=== PATIENT | female | born 1975 ===

== ENCOUNTER → 2020-09-12 13:32 | Outpatient (CLI) | payer OTHER, SELFPAY ==
--- NOTE | 2020-09-12 13:37 | DI.RAD.S_ITS ---
PROCEDURE: XR LUMBAR SPINE MIN 4V INDICATIONS: BACK PAIN TECHNIQUE: 5 views of the lumbar spine were acquired, including bilateral oblique views. COMPARISON: None. FINDINGS: Bones: 5 nonrib-bearing vertebrae are present. There is loss of normal lumbar lordosis. Mild grade 1 retrolisthesis of L3 on L4. No vertebral body compression fractures. No suspicious bony lesions. Mild multilevel endplate osteophyte formation. Facet hypertrophy throughout the mid and lower lumbar spine. Soft tissues: Overlying bowel gas pattern is normal. No suspicious soft tissue calcifications. Oblique images: No pars defects. IMPRESSION: 1. Multilevel degenerative disc and facet disease. 2. No acute fracture. No osseous lesion. If symptoms and/or clinical suspicion for pathology persist, further assessment with repeat, or advanced imaging (e.g., CT, MRI, or bone scan) may be helpful for further assessment. Dictated by: Aarti George M.D. on 09/12/2020 at 16:47 Approved by: Aarti George M.D. on 09/12/2020 at 16:48
== END ==
PROVIDERS: Referring Provider Physical Medicine & Rehabilitation; Visit Provider Physical Medicine & Rehabilitation
DX: M54.9 Dorsalgia, unspecified (principal); M51.36 Other intervertebral disc degeneration, lumbar region; M47.816 Spondylosis without myelopathy or radiculopathy, lumbar region
CPT/HCPCS: 72110

== ENCOUNTER → 2020-09-22 18:07 | Outpatient (CLI) | payer OTHER, SELFPAY ==
--- NOTE | 2020-09-22 18:09 | DI.MRI.S_ITS ---
PROCEDURE: MR LUMBAR SPINE WO CON INDICATIONS: Chronic progressive low back pain TECHNIQUE: Noncontrast sagittal T1 spin echo and T2 fast echo, sagittal STIR, axial T1 and T2 fast spin echo through the lumbar spine. In cases with scoliosis, additional coronal T2 fast spin echo may be performed. COMPARISON: None. FINDINGS: Image quality: Excellent. Alignment and Curvature: There is normal bony alignment. Bone Marrow: Marrow is of normal overall signal. No acute vertebral body compression fractures. Spinal Cord: Conus medullaris terminates at the L1 level. Visualized cord demonstrates normal signal and size. Paraspinous Soft Tissues: No paravertebral masses. T12-L1: Normal disc height. No foraminal or central canal stenosis. L1-L2: Disc desiccation and mild disc height loss. No foraminal or central canal stenosis. L2-L3: Disc desiccation and mild to moderate disc height loss. There is a small right posterolateral annular tear and minimal disc herniation without foraminal stenosis. L3-L4: Disc desiccation and mild disc height loss. Small bilateral foraminal disc herniation without significant foraminal narrowing. L4-L5: Disc desiccation and mild disc height loss. Small right posterolateral/foraminal annular tear with minimal disc bulge. No foraminal or central canal stenosis. L5-S1: Disc desiccation with mild disc height loss. Diffuse broad-based right posterolateral disc bulge superimposed on minor circumferential disc bulge. Mild left neural foraminal narrowing. No central canal narrowing. IMPRESSION: 1. Mild multilevel disc degeneration as described. 2. No significant central canal or foraminal stenosis. Dictated by: Elizabeth Dubois M.D. on 09/23/2020 at 8:28 Approved by: Elizabeth Dubois M.D. on 09/23/2020 at 8:38
== END ==
PROVIDERS: Referring Provider Physical Medicine & Rehabilitation; Visit Provider Physical Medicine & Rehabilitation
DX: M47.816 Spondylosis without myelopathy or radiculopathy, lumbar region (principal); M51.36 Other intervertebral disc degeneration, lumbar region; M51.27 Other intervertebral disc displacement, lumbosacral region; G89.29 Other chronic pain
CPT/HCPCS: 72148

== ENCOUNTER → 2020-12-06 07:29 | Outpatient (CLI) | payer OTHER, SELFPAY ==
[2020-12-06 13:22] LABS: COVID19 -Nasal RAPID Negative (Negative)
== END ==
PROVIDERS: Visit Provider Physical Medicine & Rehabilitation
DX: Z20.822 Contact with and (suspected) exposure to COVID-19 (principal)
CPT/HCPCS: 87635; C9803

== ENCOUNTER 2020-12-08 12:28 | Outpatient (CLI) | payer OTHER, SELFPAY ==
[2020-12-08] VITALS (8 sets, daily range): BP systolic 108–148; BP diastolic 59–84; PULSE 32–52; RESP 10–20; TEMP 37.1; O2SAT 96–100
--- NOTE | 2020-12-08 12:29 | DI.RAD.S_ITS ---
PROCEDURE: PAIN L/S FACET INJ/BLK 1ST ELI COMPARISON: None. INDICATIONS: SPONDYLOSIS FINDINGS: Fluoroscopic spot filming was performed to verify placement of spinal needles at the L4-L5, L5-S1 level(s), as labeled on the films. Appropriate location(s) of the needle tip(s) was confirmed by injection of iodinated contrast. Dictated by: Jason Ladd M.D. on 12/08/2020 at 14:06 Approved by: Jason Ladd M.D. on 12/08/2020 at 14:07
[2020-12-08] MEDS: fentaNYL 100 MCG/2 ML INJ 50 MCG IV (13:15)
[2020-12-08] MEDS: MIDAZOLAM 5 MG/5 ML VIAL IV (13:15)
[2020-12-08] MEDS: IOPAMIDOL 15 ML VIAL 3 ML INJ (13:24)
[2020-12-08] MEDS: BUPIVACAINE 0.5% (PF) VIAL 2 ML INJ (13:24)
[2020-12-08] MEDS: BETAMETHASONE 30 MG/5 ML MDV 12 MG INJ (13:24)
[2020-12-08] MEDS: LIDOCAINE 1% 20 ML 10 ML INJ (13:25)
--- NOTE | 2020-12-08 13:29 | P.PCN_ITS ---
Date/Time/Diagnoses Date of procedure: 12/08/20 Time of procedure: 13:29 Pre-procedure diagnosis: 1. FACET ARTHROPATHY 2. AXIAL LBP 3. MULTILEVEL DDD Post-procedure diagnosis: same Procedure Notes Procedure: 1. FLUOROSCOPICALLY GUIDED CONTRAST CONTROLLED FACET JOINT INJECTIONS BILATERAL L4/5, L5/S1 Indications: Brandee is referred for treatment of Axial LBP Physician: Milton Carvajal Total Fluoroscopy time (seconds): 11 Total sedation minutes: 11 Complications: none Procedure in detail & Post-procedure care: FINDINGS Multilevel Facet Arthropathy with Clinically significant axial LBP DESCRIPTION OF PROCEDURE Fluoroscopically guided, contrast-controlled bilateral L4/5, L5/S1 facet joint injections. Following review of allergy and review of potential side effects and compl ications, including, but not necessarily limited to, infection, allergic reaction, local tissue breakdown, stroke, temporary or permanent nerve injury, paralysis, and possible , the patient indicated that the patient understood and agreed to proceed. An informed consent document was signed by the patient, witnessed by a nurse, and placed in the patient's chart. Additionally, other treatment options including medications, modalities, and physical therapy were reviewed with the patient. After review of previous anaesthesic history and IV conscious sedation the patient was deemed safe to proceed with today?s procedure with IV conscious sedation as ASA class II designation. Safety time-out was performed to confirm patient ID, procedure to be performed and site of procedure. IV sedation was accomplished with a combination of 2mg of Versed and 50mcg of Fentanyl was administered by the RN after DO order, titrated to patient comfort during the course of the procedure while the patient remained responsive to all verbal commands In the prone position, following sterile prep and drape of the lumbar region, the posterior aspect of the L4/5, L5/S1 facet joints were identified fluorosco pically. The skin was anesthetized via a 25-gauge 1.5inch needle with 1% lidocaine solution into the corresponding facet joints. At this point, a 22- gauge 3.5-inch spinal needle was atraumatically introduced and advanced under fluoroscopic guidance into the corresponding facet joints. Following negative aspiration, injections of approximately 0.2cc of Isovue 200 confirmed interarticular placement without vascular uptake. The identical procedure was then performed at the L4/5, L5/S1 facet joints on the left. Radiological data, including multiple fluoroscopic views of the lumbosacral spin e, reveal a spinal needle at the L4/5, L5/S1 facet joints bilaterally. Subsequent views show flow of contrast material both superiorly and inferiorly within the joint space without vascular or intrathecal uptake. At this point, a total of 0.5cc including a mixture of 0.25cc Marcaine and 0.25cc betamethasone was injected without complication into each of the corresponding facet joints. The patient tolerated the procedure well without signs or symptoms of complications prior to transfer to the recovery area continued monitoring without incident. The patient was then transferred to the recovery area where they were observed for an appropriate period of time after the injection. The patient reported a VAS score of 7 prior to the procedure and a post- procedure VAS of 0. POST OP INSTRUCTIONS The patient was provided a Pain Log to continue to record their response to the target-specific procedure prior to follow-up visit with their referring physician. Additionally, specific post-injection care instructions and a contact number to our office were provided if concerns arise regarding possible complications associated with the procedure are suspected.
[2020-12-08] MEDS: ONDANSETRON 4 MG ODT SL (14:10)
--- NOTE | 2020-12-08 14:31 | PC.NURSE ---
Patient at baseline vitals, mobility and pre-procedure status. Discharged per protocol but during transport via by Justen SAMUELS the patient became very nauseated. She was brought back to the room where she continued to vomit approximately 50mL emesis, clear liquid. Zofran ODT given per verbal orders from Dr. Carvajal. Evaluated by Dr. Carvajal and after further monitoring was clear and comfortable to DC.
== END 2020-12-08 14:31 | disposition home or self-care (01) ==
PROVIDERS: Referring Provider Physical Medicine & Rehabilitation; Visit Provider Physical Medicine & Rehabilitation
DX: M47.816 Spondylosis without myelopathy or radiculopathy, lumbar region (principal); M47.817 Spondylosis without myelopathy or radiculopathy, lumbosacral region; M54.5 Low back pain; M51.36 Other intervertebral disc degeneration, lumbar region; M51.37 Other intervertebral disc degeneration, lumbosacral region
CPT/HCPCS: 64493; 64494; 99152; J0702; J2250; J3010

== ENCOUNTER → 2021-03-14 13:37 | Outpatient (CLI) | payer OTHER, SELFPAY ==
[2021-03-14 14:52] LABS: COVID19 -Nasal RAPID Negative (Negative)
== END ==
PROVIDERS: Referring Provider Physical Medicine & Rehabilitation; Visit Provider Physical Medicine & Rehabilitation
DX: Z20.822 Contact with and (suspected) exposure to COVID-19 (principal)
CPT/HCPCS: 87635; C9803

== ENCOUNTER 2021-03-16 15:31 | Outpatient (CLI) | payer OTHER, SELFPAY ==
[2021-03-16] VITALS (8 sets, daily range): BP systolic 110–125; BP diastolic 57–84; PULSE 48–70; RESP 14–20; TEMP 36.6; O2SAT 96–100
--- NOTE | 2021-03-16 15:34 | DI.RAD.S_ITS ---
PROCEDURE: PAIN L INTERLAMINAR/CAUDAL INJ INDICATIONS: SPONDYLOSIS COMPARISON: None. FINDINGS: Fluoroscopic spot filming was performed to verify placement of spinal needles at the left L5-S1 interlaminar space with tip at the level of the posterior L5-S1 epidural space. level(s), as labeled on the films. Appropriate location(s) of the needle tip(s) was confirmed by injection of iodinated contrast. IMPRESSION: Access needle placed for L5-S1 epidural steroid injection via left interlaminar approach. Dictated by: Earnestine Castañeda MD, PhD on 03/17/2021 at 12:31 Approved by: Earnestine Castañeda MD, PhD on 03/17/2021 at 12:32
[2021-03-16] MEDS: MIDAZOLAM 5 MG/5 ML VIAL IV (16:08)
[2021-03-16] MEDS: IOPAMIDOL 15 ML VIAL 3 ML INJ (16:15)
[2021-03-16] MEDS: BUPIVACAINE 0.25% (PF) VIAL 2 ML INJ (16:15)
[2021-03-16] MEDS: BETAMETHASONE 30 MG/5 ML MDV 12 MG INJ (16:16)
[2021-03-16] MEDS: DEXAMETHASONE 10 MG/ML VIAL 20 MG INJ (16:16)
--- NOTE | 2021-03-16 16:20 | PM.PROC.IR.1 ---
Date/Time/Diagnoses Date of procedure: 03/16/21 Time of procedure: 16:20 Pre-procedure diagnosis: 1. HNP WITH RADICULAR FEATURES, 2. MULTILEVEL CENTRAL STENOSIS, Post-procedure diagnosis: same Procedure Notes Procedure: 1. FLUOROSCOPICALLY GUIDED CONTRAST CONTROLLED INTERLAMINAR EPIDURAL STEROID INJECTION - L5/S1 Indications: Brandee is referred for treatment of Bilateral Foraminal Stenosis L>R LE symptoms. Physician: Milton Carvajal Total Fluoroscopy time (seconds): 4 Total sedation minutes: 8 Complications: none Procedure in detail & Post-procedure care: FINDINGS Multilevel Central Spinal Stenosis with Nerve Root Compression DESCRIPTION OF PROCEDURE Fluoroscopically guided, contrast-controlled L5/S1 translaminar epidural steroid injection. Following review of allergy and review of potential side effects and complications, including, but not necessarily limited to, infection, allergic reaction, local tissue breakdown, temporary as well as permanent nerve injury, paralysis, stroke and possible , the patient indicated that the patient understood and agreed to proceed. An informed consent document was signed by the patient, witnessed by a nurse, and placed in the patient's chart. Additionally, other treatment options including modalities, medications, and physical therapy were reviewed with the patient. After review of previous anaesthesic history and IV conscious sedation the patient was deemed safe to proceed with today?s procedure with IV conscious sedation as ASA class II designation. Safety time-out was performed to confirm patient ID, procedure to be performed and site of procedure. IV sedation was accomplished with a combination of 2mg of Versed administered by the RN after DO order, titrated to patient comfort during the course of the procedure while the patient remained responsive to all verbal commands. In the prone position, following sterile prep and drape of the lumbar region, the L5/S1 translaminar space was identified fluoroscopically. The skin was anesthetized via a 25-gauge, 1.5-inch needle with 1% lidocaine solution. At this point, a 22-gauge short bevel spinal needle was atraumatically introduced and advanced under fluoroscopic guidance into the region of the L5/S1 translaminar space. Depth was confirmed on lateral view. Radiological data, including multiple fluoroscopic views of the lumbar spine, reveal a spinal needle at the L5/S1 translaminar space. Lateral views then show placement of the needle in the epidural space. Subsequent views show contrast material flowing superiorly and inferiorly in the epidural space. No vascular or intrathecal uptake is observed. At this point, using loss of resistance technique with saline and air, the epidural space was entered. This was confirmed following negative aspiration with injection of approximately 1.5cc of Isovue 200, showing excellent epidural flow without vascular or intrathecal uptake. At this point, 1 cc of 1% lidocaine solution combined with 4cc or 20mg of dexamethasone and 12mg of betamethasone was injected without incident. The patent tolerated the procedure without signs of symptoms of complications prior to transfer to the recovery area for further monitoring. The patient was then transferred to the recovery area where they were observed for an appropriate period of time after the injection. The patient reported a VAS score of 6 prior to the procedure and a post-procedure VAS of 0. POST OP INSTRUCTIONS The patient was provided a Pain Log to continue to record their response to the target-specific procedure prior to follow-up visit with their referring physician. Additionally, specific post-injection care instructions and a contact number to our office were provided if concerns arise regarding possible complications associated with the procedure are suspected.
== END 2021-03-16 16:39 | disposition home or self-care (01) ==
LOC: RAD 15:32
PROVIDERS: Referring Provider Physical Medicine & Rehabilitation; Visit Provider Physical Medicine & Rehabilitation
DX: M51.17 Intervertebral disc disorders with radiculopathy, lumbosacral region (principal); M48.07 Spinal stenosis, lumbosacral region
CPT/HCPCS: 62323; J0702; J1100; J2250; J3010

== ENCOUNTER → 2021-09-26 15:59 | Outpatient (CLI) | payer OTHER, SELFPAY | PROVIDERS: Referring Provider Ophthalmology; Visit Provider Ophthalmology | DX: H16.042 Marginal corneal ulcer, left eye (principal) | CPT/HCPCS: 87070; 87075; 87205 ==

== ENCOUNTER → 2021-12-19 13:39 | Outpatient (CLI) | payer OTHER, SELFPAY ==
[2021-12-19 15:17] LABS: Add Manual Diff / Slide Review NO; Basophils Absolute Auto 100 /uL (0-100); Eosinophils Absolute Auto 100 /uL (0-450); Eosinophils Percent Auto 2.2 % (2-4); Hematocrit 38.3 % (36-46); Hemoglobin 13.1 g/dL (12.0-16.0); Lymphocytes Absolute Auto 1900 /uL (1100-4500); Mean Corpuscular HGB Conc 34.1 % (30-36); Mean Corpuscular Hemoglobin 30.6 PG (26-34); Mean Corpuscular Volume 89.7 fL (80-100); Monocytes Absolute Auto 300 /uL (0-900); Monocytes Percent Auto 5.1 % (3-14); Neutrophils Absolute Auto 3900 /uL (1500-7000); Neutrophils Percent Auto 61.7 % (50-75); Platelet Count 261 X10^3/uL (150-400); Red Blood Cell Count 4.27 X10^6/uL (4.0-5.2); Red Cell Distribution Width 12.5 % (11.6-14.8); White Blood Cell Count 6.3 X10^3/uL (4.5-11.0)
[2021-12-19 15:39] LABS: Alanine Aminotransferase 13 IU/L (<35); Albumin 4.3 g/dL (3.5-5.0); Albumin Globulin Ratio 1.6 (1.0-2.8); Alkaline Phosphatase 45 U/L (38-126); Aspartate Aminotransferase 23 IU/L (14-36); BUN Creatinine Ratio 22.1 (6-22); Bilirubin Total 0.6 mg/dL (0.2-1.3); Blood Urea Nitrogen 15 mg/dL (7-17); Calcium 9.2 mg/dL (8.4-10.2); Carbon Dioxide 28 mmol/L (22-32); Chloride 102 mmol/L (98-107); Estimated Glomerular Filt Rate > 60 mL/min (>60); Globulin 2.7 g/dL (1.7-4.1); Glucose 85 mg/dL (70-100); HEMOLYSIS < 15 (0-50); Sodium 136 mmol/L (137-145); Uric Acid 3.9 mg/dL (2.5-6.2)
[2021-12-19 15:44] LABS: High Sensitivity CRP - Cardiac < 0.3 mg/L (1.0-3.0)
[2021-12-19 15:45] LABS: Rheumatoid Factor < 8.6 IU/mL (<12.0)
[2021-12-19 16:10] LABS: Thyroid Stimulating Hormone 0.794 uIU/mL (0.47-4.68)
[2021-12-19 16:28] LABS: Erythrocyte Sedimentation Rate 5 MM/HR (0-20)
[2021-12-20 16:54] LABS: SS A Ro Sjogrens Antibody < 0.2 AI (0.0-0.9); SS B La Sjogrens Antibody < 0.2 AI (0.0-0.9)
[2021-12-22 14:37] LABS: ANA Screen, IFA Negative (.)
== END ==
PROVIDERS: Referring Provider Ophthalmology; Visit Provider Ophthalmology
DX: M35.00 Sjogren syndrome, unspecified (principal); H16.9 Unspecified keratitis; H44.113 Panuveitis, bilateral
CPT/HCPCS: 36415; 80053; 84443; 84550; 85025; 85651; 86038; 86140; 86235; 86430

== ENCOUNTER → 2022-01-19 09:32 | Outpatient (CLI) | payer OTHER, SELFPAY ==
[2022-01-29 09:28] LABS: HLA B27 Negative (.)
== END ==
PROVIDERS: Referring Provider Ophthalmology; Visit Provider Ophthalmology
DX: H44.112 Panuveitis, left eye (principal)
CPT/HCPCS: 36415; 81374